=== PATIENT | male | born 1965 | race Caucasian/White ===

== ENCOUNTER 2017-02-15 07:10 | Inpatient (IN) | payer OTHER ==
[~2017-02-15] VITALS: Ht 177.8 cm; Wt 94.9 kg
[~2017-02-15 07:10] MED LIST: ATARAX,VISTARIL50 MG PO; AUGMENTIN875 MG PO; BACTRIM,SEPT1 TABLET PO; CITALOPRAM HBR20 MG PO; CLARITIN,ALAVAR10 MG PO; COLACE100 MG PO; COMBIVENT RESPIM4 GM IH; CONSTULOSE10 GM/15 M PO; COUMADIN1 MG PO; COUMADIN5 MG PO; DEPAKOTE250 MG PO; DESYREL100 MG PO; ENDOCET 5-3251 EACH PO; FLOMAX0.4 MG PO; HYDROCHLOROTH12.5 M3 PO; KLONOPIN1 MG PO; LAMICTAL100 MG PO; LISINOPRIL40 MG PO; LOPRESSOR50 MG PO; LOVENOX100 MG/1 M SC; LYRICA50 MG PO; LYRICA75 MG PO; METOPROLOL TAR100 MG PO; MORPHINE SULFAT15 M1 PO; NAPROSYN500 MG PO; NOHOMEMEDS; PERCOCET 5/31 TABLET PO; PRILOSEC40 MG PO; PROAIR HFA8.5 GM IH; PROMETHAZINE HC25 M1 PO; PROVENTIL,2.5 MG/3 M IH; SEROQUEL100 MG PO; SEROQUEL12.5 MG PO; SEROQUEL200 MG PO; SEROQUEL300 MG PO; SEROQUEL50 MG PO; SYMBICORT60 INHALAT IH; TORADOL10 MG PO; WELLBUTRIN75 MG PO; ZOFRAN4 MG PO
[2017-02-15 08:10] LABS: MCH 31.8 PG (29.0-34.0); MCHC 33.8 G/DL (30.0-36.0); MEAN PLAT.VOLUME 10.4 uM^3 (9.0-12.4); PLATELET COUNT 272 K/uL (156-360); RBC DIS.WIDTH-SD 41.5 % (39-53); WHITE BLOOD COUNT 15.2 K/uL (4.1-10.2)
[2017-02-15 08:19] LABS: CHLORIDE 100 mEq/L (99-109); POTASSIUM 4.3 mEq/L (3.7-5.4); SODIUM 140 mEq/L (136-147)
[2017-02-15 08:21] LABS: GLUCOSE 90 mg/dL (70-99)
[2017-02-15 08:22] LABS: ANION GAP 14 MEQ/L (2-14)
[2017-02-15 08:23] LABS: TOTAL BILIRUBIN 0.6 mg/dL (0.0-1.0)
[2017-02-15 08:24] LABS: ALKALINE PHOSPHATASE 61 IU/L (3-129)
[2017-02-15 08:25] LABS: GFR ESTIMATE (CALCULATED) > 59 mL/min/
[2017-02-15 08:26] LABS: UREA NITROGEN (BUN) 10 mg/dL (9-23)
[2017-02-15 08:28] LABS: LIPASE 517 U/L (1.0-51.0)
[2017-02-15 08:32] LABS: TROP-I INTERPRETATION NEGATIVE; TROPONIN-I < 0.01 ng/mL (0.0-0.30)
[2017-02-15] MEDS ORDERED: PERCOCET 5/31 TABLET PO (10:24)
[2017-02-15] MEDS ORDERED: KLONOPIN0.5 M1 PO (10:25)
[2017-02-15] MEDS ORDERED: LAMICTAL150 M1 PO (10:26)
[2017-02-15] MEDS ORDERED: XARELTO20 MG PO (10:33)
[2017-02-15] MEDS ORDERED: DUONEB 2.5-0.5 M3 ML AEROSOL (10:33)
[2017-02-15 16:50] VITALS: BP 160/98
[2017-02-15 19:32] VITALS: BP 155/94
[2017-02-15 23:41] VITALS: BP 168/99
[2017-02-16] VITALS (7 sets, daily range): BP systolic 121–159; BP diastolic 74–93
[2017-02-16 07:37] LABS: MCH 31.6 PG (29.0-34.0); MCHC 33.7 G/DL (30.0-36.0); MCV 93.8 FL (86-99); MEAN PLAT.VOLUME 11.4 uM^3 (9.0-12.4); PLATELET COUNT 223 K/uL (156-360); RBC DIS.WIDTH-CV 11.9 % (11.8-14.6); RBC DIS.WIDTH-SD 41.1 % (39-53); RED BLOOD COUNT 4.37 M/uL (4.00-5.50); WHITE BLOOD COUNT 10.8 K/uL (4.1-10.2)
[2017-02-16 07:44] LABS: ANION GAP 7 MEQ/L (2-14); CHLORIDE 104 MEQ/L (99-109); GFR ESTIMATE (CALCULATED) > 59 mL/min/; GLUCOSE 111 mg/dL (70-99); POTASSIUM 3.8 MEQ/L (3.7-5.4); SAMPLE HEMOLYSIS CHECK 0; SAMPLE ICTERIC CHECK 0; SAMPLE LIPEMIA CHECK 0; SODIUM 139 MEQ/L (136-147); UREA NITROGEN (BUN) 7 mg/dL (9-23)
[2017-02-16 09:06] LABS: LIPASE 113 U/L (1.0-51.0)
[2017-02-17 04:00] VITALS: BP 131/82
[2017-02-17 07:41] VITALS: BP 136/71
[2017-02-17 11:15] VITALS: BP 124/80
[2017-02-17 16:41] VITALS: BP 168/90
[2017-02-17 18:49] VITALS: BP 152/79
[2017-02-17 22:37] VITALS: BP 137/88
[2017-02-18 03:05] VITALS: BP 174/86
[2017-02-18 08:09] VITALS: BP 166/83
[2017-02-18 16:04] VITALS: BP 167/89
[2017-02-18 18:45] VITALS: BP 171/86
[2017-02-18 22:53] VITALS: BP 174/77
[2017-02-19 08:35] VITALS: BP 170/68
== END 2017-02-19 15:04 | disposition home or self-care (01) | DRG 440 ==
LOC: EME → EDBD 07:10 → EDOF 09:31 → 5EAST 09:31
PROVIDERS: Internal Medicine; Physician Assistant Medical
DX: K85.20 Alcohol induced acute pancreatitis without necrosis or infection (principal); J44.9 Chronic obstructive pulmonary disease, unspecified; I10 Essential (primary) hypertension; K59.00 Constipation, unspecified; K21.9 Gastro-esophageal reflux disease without esophagitis; F31.9 Bipolar disorder, unspecified; E66.9 Obesity, unspecified; Z79.01 Long term (current) use of anticoagulants; Z86.711 Personal history of pulmonary embolism; Z86.718 Personal history of other venous thrombosis and embolism; Z88.5 Allergy status to narcotic agent
CPT/HCPCS: 74176; 80048; 80053; 81003; 83690; 84484; 85027; 93005; 94640; 94640 76; 99202; 99281; 99284; J2405; J3010; J7030; S0028

== ENCOUNTER → 2018-07-28 | Outpatient (CLI) | payer OTHER ==
[~2018-07-28] VITALS: Ht 177.8 cm; Wt 93.9 kg
[~2018-07-28] MED LIST changes: +DUONEB 2.5-0.5 M3 ML AEROSOL; +FLEXERIL10 MG PO; +LAMICTAL150 M1 PO; +LYRICA100 MG PO; -LYRICA75 MG PO; +OMEPRAZOLE40 M1 PO; +XARELTO20 MG PO
[2018-07-28 13:04] LABS: BASOPHIL (%) 0.4 % (0-1); EOSINOPHIL (%) 0.8 % (0-5); EOSINOPHIL COUNT 0.1 K/uL (0-0.3); HEMATOCRIT 50.9 % (38.0-50.0); HEMOGLOBIN 17.8 G/DL (12.5-16.6); IMMATURE GRANULOCYTE (%) 0.3 % (0.0-0.7); INTER. NORMALIZED RATIO 1.1; LYMPHOCYTE (%) 21.9 % (15-42); LYMPHOCYTE COUNT 2.3 K/uL (1.0-2.8); MCH 32.9 PG (29.0-34.0); MCV 94.1 FL (86-99); MONOCYTE (%) 8.9 % (3-12); MONOCYTE COUNT 0.9 K/uL (0-0.8); NEUTROPHIL (%) 67.7 % (45-76); PLATELET COUNT 263 K/uL (156-360); RBC DIS.WIDTH-CV 12.5 % (11.8-14.6); RBC DIS.WIDTH-SD 43.5 % (39-53); RED BLOOD COUNT 5.41 M/uL (4.00-5.50); WHITE BLOOD COUNT 10.4 K/uL (4.1-10.2)
[2018-07-28 13:06] LABS: PTT 29.5 SEC (25-37)
== END | disposition home or self-care (01) ==
LOC: AMB 12:15
PROVIDERS: Anesthesiology
DX: D12.2 Benign neoplasm of ascending colon (principal); D12.0 Benign neoplasm of cecum; D12.3 Benign neoplasm of transverse colon; K63.5 Polyp of colon; Z80.0 Family history of malignant neoplasm of digestive organs; K64.8 Other hemorrhoids; I10 Essential (primary) hypertension; F41.9 Anxiety disorder, unspecified; J44.9 Chronic obstructive pulmonary disease, unspecified; K21.9 Gastro-esophageal reflux disease without esophagitis; Z87.891 Personal history of nicotine dependence; Z79.01 Long term (current) use of anticoagulants; Z88.5 Allergy status to narcotic agent; Z86.711 Personal history of pulmonary embolism
CPT/HCPCS: 85025; 85610; 85730; 88305; 93005; J2250